=== PATIENT | male | born 1960 | race Caucasian/White ===

== ENCOUNTER 2025-04-25 23:16 | Inpatient (IN) | payer OTHER, SELFPAY ==
[2025-04-25 13:59] VITALS: BP 171/95
[2025-04-25 14:14] LABS: Hematocrit 43.6 % (39.0-52.0); Hemoglobin 14.7 g/dL (13.0-18.0); Mean Corp Hgb Conc. 33.7 g/dL (33.0-37.0); Mean Corpuscular Volume 87.7 fL (80.0-94.0); Nucleated Red Blood Cells % 0 % (-); Platelet Count 126 10^3/uL (130-400); Red Cell Dist. Width 12.9 % (11.5-14.5)
[2025-04-25 14:35] LABS: COVID-19 Antigen Negative (Negative)
[2025-04-25 14:53] LABS: ALT (SGPT) 33 U/L (0-50); AST (SGOT) 33 U/L (17-59); Albumin 4.2 g/dl (3.5-5.0); Alkaline Phosphatase 53 U/L (38-126); Blood Urea Nitrogen 25 mg/dl (9-20); Calcium 9.1 mg/dl (8.4-10.2); Carbon Dioxide 25 mmol/L (22-30); Chloride 99 mmol/L (98-107); Glucose 141 mg/dl (70-99); Potassium 4.0 mmol/L (3.5-5.1); Sodium 131 mmol/L (135-145); Total Protein 7.5 g/dl (6.3-8.2); eGFR > 60.00
[2025-04-25 18:34] VITALS: BP 158/76
[2025-04-25 18:36] VITALS: BMI 31.7
[2025-04-25] MEDS: TYLENOL 1000 MG PO (18:52)
[2025-04-25 19:00] VITALS: BP 156/81
[2025-04-25] MEDS: NSS 1000 IV (19:00)
--- NOTE | 2025-04-25 19:24 | ED.GENMED ---
History of Present Illness
<Tiffanie Nguyen PA-C - Last Filed: 04/26/25 11:37>
General
Chief Complaint: Change in Mental Status
Source: patient
Exam Limitations: none
Time Seen by Provider: 04/25/25 18:25
Nursing documentation reviewed up to this point in time: agreed with
History of Present Illness
History of Present Illness:
Patient is a 64-year-old male who presents to the emergency department for evaluation of flulike symptoms. Patient states he has had 2 days of fever, myalgias, and chills. He reports dark urine and mild low back discomfort. He denies any nasal
congestion, productive cough, sore throat. He has not had any abdominal pain or vomiting, however does endorse very little appetite over the past 2 days.
Patient was seen by his primary care provider this morning and was found to be febrile with a urinalysis which revealing evidence of infection and red blood cells.
He also notes that he has had difficulty finding words this morning and feels somewhat confused. He denies any recent head trauma. No headache or neck pain. No numbness/tingling or weakness in extremities.
He lives at home with his however she has been out of town for the weekend. He denies any known sick contacts.
He does have a history of a UTI in the past. No known history of kidney stones.
Review of Systems
<Tiffanie Nguyen PA-C - Last Filed: 04/26/25 11:37>
Review of Systems
Allergies reviewed?: Yes
All Other Systems: ROS reviewed and negative except as documented in HPI and ROS
Phy Exam
<Tiffanie Nguyen PA-C - Last Filed: 04/26/25 11:37>
Physical Exam
Physical Exam:
Vitals: Hypertensive, febrile.
General: Patient is in no distress.
Skin: Warm and dry, no rashes or lesions
Head: Normocephalic, atraumatic
Eyes: Sclera nonicteric. EOMs intact. Pupils equal round and reactive to light bilaterally. No nystagmus.
Throat: Protecting airway
Neck: Normal ROM, no cervical spine tenderness, no meningismus
Cardiac: Regular rate and rhythm, no murmurs.
Pulm: Normal respiratory effort. Lungs clear bilaterally
Abdomen: Abdomen soft without areas of focal tenderness. No rebound or guarding. No CVA tenderness.
Extremities: No evidence of cyanosis or edema. Strength 5/5 in bilateral upper and lower extremities.
Neuro: AAOx3. Somewhat slow speech however no obvious slurring. CN II-XII grossly intact. No facial droop or asymmetry.
Psychiatric: Normal affect.
Course
<Tiffanie Nguyen PA-C - Last Filed: 04/26/25 11:37>
Orders/Labs/Results
Orders:
Orders
04/25/25 14:05
COVID-19 Antigen Urgent
Source: Nasal Swab
Complete Blood Count/With Diff Urgent
Comprehensive Metabolic Panel Urgent
Lactic Acid Urgent
Blood Culture Urgent
[facility] Source: Blood/Venous
Specimen Description:
Influenza A+B Rapid Molecular Urgent
[facility] Source: Nasal Swab
Specimen Description:
04/25/25 Dinner
Regular
At Your Request: Full Participation
04/25/25 18:35
Abdomen/Pelvis wo Contrast CT [CT Abd/pelvis Wo Iv Cont] Urgent
Comment:
Reason For Exam: hematuria, fever
0.9% Sodium Chloride 1000 ml [Nss] 1,000 ml IV BOLUS
Acetaminophen [Tylenol] 1,000 mg PO NOW STA
04/25/25 18:36
CT Head W/o Iv Contrast Urgent
Comment:
Reason For Exam: AMS, confusion
04/25/25 19:01
Blood Culture Q30M
[facility] Source: Blood/Venous
Specimen Description:
04/25/25 21:53
Urinalysis Reflex To Culture Urgent
Date Specimen was Collected: 04/25/25
Time Specimen was Collected: 21:31
Urine Microscopic Reflex Cult Urgent
Urine Culture Urgent
[facility] Source: U
Specimen Description:
Date Specimen was Collected: 04/25/25
Time Specimen was Collected: 21:31
04/25/25 22:28
Cefepime HCl [Maxipime] 2,000 mg IV NOW STA
04/25/25 22:38
Add On - Microbiology Urgent
Tests Added?: urine culture
04/25/25 22:40
Sterile Water [Sterile Water For Injection] 10 ml .ROUTE .[facility]-MED [facility]
04/25/25 23:02
Admit/Transfer Patient As Directed
Co-Sign Provider:
Level of Care: Inpatient admission
Assign to:: Medical/Surgical
Physician / Group: sana
Diagnosis: uti
Reason for Hospitalization: uti
Expected length of stay greater than two midnights?: Yes
ELOS- Estimated Length of Stay in days: 2
I certify the patient meets the requirements for IP care: Yes
Code Status As Directed
Resuscitation Status: Full Code
PRN Pain Medication Management As Directed
May give lesser potent ordered pain med per pt: Yes
preference::
Protocol:: Medication orders for pain may be administered in a
manner that supports deferring to patient preference
when the pt is:
- Requesting an ordered lesser potent pain medication.
Least to most potent pain medications are defined
as: acetaminophen < NSAID < tramadol < opioids
(morphine, oxycodone, hydromorphone).
- Requesting a lesser dose of the same medication IF
ORDERED.
- Requesting a less intrusive route of administration
if both routes are prescribed by the provider (PO <
IV).
04/25/25 23:55
0.9% Sodium Chloride 1000 ml [Nss] 1,000 ml IV 100 mls/hr
Acetaminophen [Tylenol] 650 mg PO Q4HPRN PRN
Ondansetron Injectable [Zofran] 4 mg IV Q6HPRN PRN
04/25/25 23:55
UROLOGY CONSULT Routine
Consulting Provider: Adi Hills
Was physician already notified: Yes
Activity As Directed
Activity Level: As Tolerated
Pneumatic Compression Sleeves As Directed
Type: Knee high
Vital Signs As Directed
Frequency: Per unit guidelines
DX Deep Vein Thrombosis Video Routine
04/26/25 04:00
CefTRIAXone [Rocephin] 1,000 mg IV Q24H
04/26/25 06:15
Complete Blood Count/With Diff IN AM
Comprehensive Metabolic Panel IN AM
04/26/25 22:00
Atorvastatin [Lipitor] 10 mg PO HS
Abnormal Lab Results
04/25/25 04/25/25
14:05 21:53
WBC 11.3 H 10^3/uL
(4.8-10.8)
Plt Count 126 L 10^3/uL
(130-400)
Absolute Neuts (auto) 9.3 H 10^3/uL
(1.4-6.5)
Absolute Lymphs (auto) 0.5 L 10^3/uL
(1.2-3.4)
Absolute Monos (auto) 1.5 H 10^3/uL
(0.1-0.6)
Neutrophils % 81.8 H %
(42.2-75.2)
Lymphocytes % 4.4 L %
(20.5-51.1)
Monocytes % 13.3 H %
(1.7-9.3)
Sodium 131 L mmol/L
(135-145)
BUN 25 H mg/dl
(9-20)
Glucose 141 H mg/dl
(70-99)
Total Bilirubin 1.9 H mg/dl
(0.2-1.3)
Urine Ketones 2+ A
(Negative)
Ur Occult Blood Reflex 4+ A
(Negative)
Leukocyte Esterase Rfl 2+ A
(Negative)
Urine RBC 16-20 A /HPF
(0-2)
Urine WBC (Reflex) 11-15 A /HPF
(0-5)
Urine Bacteria (Reflex) Many A
(Negative)
Urine Albumin (Reflex) 4+ A
(Neg - Trace)
04/25/25 14:05
04/25/25 14:05
Vital Signs
Initial and Last Documented VS:
Initial Vital Signs
Temp Pulse Resp BP Pulse Ox
102.7 F H 82 16 171/95 92
04/25/25 13:59 04/25/25 13:59 04/25/25 13:59 04/25/25 13:59 04/25/25 13:59
Last Documented Vital Signs
Temp Pulse Resp BP Pulse Ox
98.4 F 66 16 140/74 96
04/26/25 07:20 04/26/25 07:20 04/26/25 07:20 04/26/25 07:20 04/26/25 07:20
<Kavin Rae, DO - Last Filed: 04/25/25 22:23>
Orders/Labs/Results
Orders:
Orders
04/25/25 14:05
COVID-19 Antigen Urgent
Source: Nasal Swab
Complete Blood Count/With Diff Urgent
Comprehensive Metabolic Panel Urgent
Lactic Acid Urgent
Blood Culture Urgent
[facility] Source: Blood/Venous
Specimen Description:
Influenza A+B Rapid Molecular Urgent
[facility] Source: Nasal Swab
Specimen Description:
04/25/25 Dinner
Regular
At Your Request: Full Participation
04/25/25 18:35
Abdomen/Pelvis wo Contrast CT [CT Abd/pelvis Wo Iv Cont] Urgent
Comment:
Reason For Exam: hematuria, fever
0.9% Sodium Chloride 1000 ml [Nss] 1,000 ml IV BOLUS
Acetaminophen [Tylenol] 1,000 mg PO NOW STA
04/25/25 18:36
CT Head W/o Iv Contrast Urgent
Comment:
Reason For Exam: AMS, confusion
04/25/25 19:01
Blood Culture Q30M
[facility] Source: Blood/Venous
Specimen Description:
04/25/25 21:53
Urinalysis Reflex To Culture Urgent
Date Specimen was Collected: 04/25/25
Time Specimen was Collected: 21:31
Urine Microscopic Reflex Cult Urgent
Urine Culture Urgent
[facility] Source: U
Specimen Description:
Date Specimen was Collected: 04/25/25
Time Specimen was Collected: 21:31
04/25/25 22:28
Cefepime HCl [Maxipime] 2,000 mg IV NOW STA
04/25/25 22:38
Add On - Microbiology Urgent
Tests Added?: urine culture
04/25/25 22:40
Sterile Water [Sterile Water For Injection] 10 ml .ROUTE .[facility]
04/25/25 23:02
Admit/Transfer Patient As Directed
Co-Sign Provider:
Level of Care: Inpatient admission
Assign to:: Medical/Surgical
Physician / Group: sana
Diagnosis: uti
Reason for Hospitalization: uti
Expected length of stay greater than two midnights?: Yes
ELOS- Estimated Length of Stay in days: 2
I certify the patient meets the requirements for IP care: Yes
Code Status As Directed
Resuscitation Status: Full Code
PRN Pain Medication Management As Directed
May give lesser potent ordered pain med per pt: Yes
preference::
Protocol:: Medication orders for pain may be administered in a
manner that supports deferring to patient preference
when the pt is:
- Requesting an ordered lesser potent pain medication.
Least to most potent pain medications are defined
as: acetaminophen < NSAID < tramadol < opioids
(morphine, oxycodone, hydromorphone).
- Requesting a lesser dose of the same medication IF
ORDERED.
- Requesting a less intrusive route of administration
if both routes are prescribed by the provider (PO <
IV).
04/25/25 23:55
0.9% Sodium Chloride 1000 ml [Nss] 1,000 ml IV 100 mls/hr
Acetaminophen [Tylenol] 650 mg PO Q4HPRN PRN
Ondansetron Injectable [Zofran] 4 mg IV Q6HPRN PRN
04/25/25 23:55
UROLOGY CONSULT Routine
Consulting Provider: Adi Hills
Was physician already notified: Yes
Activity As Directed
Activity Level: As Tolerated
Pneumatic Compression Sleeves As Directed
Type: Knee high
Vital Signs As Directed
Frequency: Per unit guidelines
DX Deep Vein Thrombosis Video Routine
04/26/25 04:00
CefTRIAXone [Rocephin] 1,000 mg IV Q24H
04/26/25 06:15
Complete Blood Count/With Diff IN AM
Comprehensive Metabolic Panel IN AM
04/26/25 22:00
Atorvastatin [Lipitor] 10 mg PO HS
Abnormal Lab Results
04/25/25 04/25/25
14:05 21:53
WBC 11.3 H 10^3/uL
(4.8-10.8)
Plt Count 126 L 10^3/uL
(130-400)
Absolute Neuts (auto) 9.3 H 10^3/uL
(1.4-6.5)
Absolute Lymphs (auto) 0.5 L 10^3/uL
(1.2-3.4)
Absolute Monos (auto) 1.5 H 10^3/uL
(0.1-0.6)
Neutrophils % 81.8 H %
(42.2-75.2)
Lymphocytes % 4.4 L %
(20.5-51.1)
Monocytes % 13.3 H %
(1.7-9.3)
Sodium 131 L mmol/L
(135-145)
BUN 25 H mg/dl
(9-20)
Glucose 141 H mg/dl
(70-99)
Total Bilirubin 1.9 H mg/dl
(0.2-1.3)
Urine Ketones 2+ A
(Negative)
Ur Occult Blood Reflex 4+ A
(Negative)
Leukocyte Esterase Rfl 2+ A
(Negative)
Urine RBC 16-20 A /HPF
(0-2)
Urine WBC (Reflex) 11-15 A /HPF
(0-5)
Urine Bacteria (Reflex) Many A
(Negative)
Urine Albumin (Reflex) 4+ A
(Neg - Trace)
04/25/25 14:05
04/25/25 14:05
Vital Signs
Initial and Last Documented VS:
Initial Vital Signs
Temp Pulse Resp BP Pulse Ox
102.7 F H 82 16 171/95 92
04/25/25 13:59 04/25/25 13:59 04/25/25 13:59 04/25/25 13:59 04/25/25 13:59
Last Documented Vital Signs
Temp Pulse Resp BP Pulse Ox
98.4 F 66 16 140/74 96
04/26/25 07:20 04/26/25 07:20 04/26/25 07:20 04/26/25 07:20 04/26/25 07:20
<Tiffanie Nguyen PA-C - Last Filed: 04/26/25 11:37>
MDM/Problems Addressed
Differential Diagnosis Includes:
Not limited to: Viral illness, acute dehydration, cystitis, pyelonephritis, prostatitis, obstructing ureteral stone, etc.
MDM/Problems Addressed:
64 year-old male with two days of fevers and myalgias, along with dark urine. Today with mild expressive aphasia and confusion. No respiratory symptoms. No abdominal pain or vomiting.
Patient is febrile on arrival, however otherwise has stable vital signs. On exam, his abdomen is soft without any areas of focal tenderness. Cardio/pulmonary assessment unremarkable. Somewhat slowed speech however he is alert and oriented without
any focal neurologic deficits.
Differential includes viral illness, complicated UTI/prostatitis, obstructing kidney stone, etc.
ED plan: Septic work up including labs, lactic acid, blood cultures. Will check UA and noncontrast CT scan abdomen/pelvis. Will check CT head with hx of change in mental status.
Update: Labs reveal mild leukocytosis and elevated bilirubin. Lactic acid normal. UA appears infected. CT without acute intra-abdominal pathology. Incidental suspected hepatic cysts and unknown lesion on right kidney noted � I did discuss both of
these findings with patient and importance of close follow-up outpatient. CT head without acute findings.
Impression is likely complicated UTI/prostatitis w/ suspected metabolic encephalopathy from infection. Patient will be admitted for IV antibiotics and further management pending blood cultures.
Patient given IV Cefepime in ED. Accepted to hospitalist service in stable condition.
Chronic conditions affecting care:
N/A
Acute Exacerbation and/or Progression of Chronic Illness:
N/A
<Tiffanie Nguyen PA-C - Last Filed: 04/26/25 11:37>
*Radiology
Radiology exam reviewed: radiology read reviewed
*Pulse Oximetry
SaO2: 96
Oxygen Mode of Delivery: Room air
Patient hypoxic: no
*EKG
Interpreted by ED Provider?: NA
*Slitter Cut Off Operator Interpretation
Rate: Slitter Cut Off Operator- N/A
*Critical Care Note
Total Time (30-74mins, 75-104mins- exclusive of procedures): Not Applicable
<Tiffanie Nguyen PA-C - Last Filed: 04/26/25 11:37>
Patient Management
Discussion with other providers: Hospitalist
ED Attending Note
<Tiffanie Nguyen PA-C - Last Filed: 04/26/25 11:37>
-
Portions of this chart may have been created with voice recognition software.� Occasional wrong word or��sound alike� substitutions may have occurred due to the inherent limitations of voice recognition software.
<Kavin Rae DO - Last Filed: 04/25/25 22:23>
ED Attending Note
Patient seen and examined by attending physician: Yes
Discharge Plan
Departure
Patient Disposition: Admit
Date of Disposition: 04/25/25
Time of Disposition: 22:35
Presentation/result/management discussed w/ accepting MD/DO: Hospitalist
Discharge Problem:
Complicated UTI (urinary tract infection)
Interventions
Interventions:
*Risk Screen - Suicide Last Done: 04/25/25 13:59
*General Assessment Last Done: 04/25/25 18:36
*Neglect/Abuse Screening Last Done: 04/25/25 13:59
*ED- Fall Risk Assessment Last Done: 04/25/25 18:36
*ED COVID-19 Vaccine History Last Done: 04/25/25 18:36
*ED Influenza Vaccine History Last Done: 04/25/25 18:36
*Nursing Disposition Last Done: 04/26/25 00:12
ED- Pulmonary Assessment Last Done: 04/25/25 18:52
ED- Neurological Assessment Last Done: 04/25/25 18:37
ED- Cardiac Assessment Last Done: 04/25/25 18:59
ED Swallowing Screen Last Done: 04/25/25 18:50
Discharge Date and Time
Discharge Date/Time: 04/26/25 00:21
[2025-04-25 20:00] VITALS: BP 133/72
[2025-04-25 22:02] LABS: Urine Character Cloudy (Clear)
[2025-04-25 22:08] LABS: Urine Squamous Cell 0-2 /LPF (Few)
[2025-04-25 22:11] LABS: Urine Red Blood Cell 16-20 /HPF (0-2)
[2025-04-25] MEDS: MAXIPIME 2000 MG IV (22:41)
[2025-04-25 22:44] VITALS: BP 143/72
--- NOTE | 2025-04-25 23:04 | HPS.HSE ---
Family Physician
-
Family Physician: Morgan Conner
Chief Complaint
-
urinary symptoms
History of Present Illness
63-year-old male past medical history of prior UTI, hip surgery presenting with flulike symptoms. He had 2 days of fever, myalgias and chills. He had dark bloody urine. He denies any nasal congestion, productive cough or sore throat. He denies
any abdominal pain or vomiting but does have decreased appetite over past 2 days. Did have dry heaving. Denies sick contacts. He lives at home with his but she has been out of town for the weekend.
He was seen by his primary care physician this morning and was found to be febrile with urinalysis revealing infection and RBCs. He also has had difficulty finding words this morning and feels somewhat confused which is improved. Denies head
trauma. Denies headache or neck pain. Denies numbness or tingling or focal weakness.
Denies any prior urinary symptoms such as difficulty voiding.
His brothers and mother have renal cysts.
He denies smoking. He drinks alcohol occasionally.
Medical History
Past Medical History
Past Medical History: Reports Other (prior UTI)
Past Surgical History: Reports Other (hip surgery )
Social History
Tobacco: Non-smoker
Alcohol: Occasional
Drug: None
Family History
Family History: Other (mother lung cancer )
Allergies / Home Medications
Allergies reflects when Allergies were last updated in [employer].
Home Medications with original date entered in [employer]
Allergy/Medication List:
Allergies
Allergy/AdvReac Type Severity Reaction Status Date / Time
No Known Allergies Allergy Verified 04/25/25 22:01
Home Medications
aspirin 81 mg tablet 81 mg PO DAILY 04/25/25
simvastatin 10 mg tablet 10 mg PO HS 04/25/25
Review of Systems
-
Constitutional: Reports No Symptoms
EENT: Reports No Symptoms
Respiratory: Reports No Symptoms
Cardiac: Reports No Symptoms
Abdomen/GI: Reports No Symptoms
: Reports See HPI
Musculoskeletal: Reports No Symptoms
Skin: Reports No Symptoms
Neurological: Reports No Symptoms
Endocrine: Reports No Symptoms
Hematologic/Lymphatic: Reports No Symptoms
Psych: Reports No Symptoms
Physical Exam
Vital Signs
Vital Signs
Temp Pulse Resp BP Pulse Ox
100.4 F H 71 23 133/72 95
04/25/25 21:58 04/25/25 22:30 04/25/25 22:30 04/25/25 20:00 04/25/25 22:30
Physical Exam
General: Well Developed, Well Nourished and No Apparent Distress
HEENT: NormoCephalic, Moist mucous membranes and Atraumatic
Respiratory: Clear
Cardiac: S1/S2 and Regular Rhythm; No Murmur or Rub
GI: Soft, Non Tender, Non Distended and Normal Bowel Sounds; No Organomegaly
Rectal: Deferred by Provider
Musculoskeletal: No Clubbing, No Cyanosis and No Edema
Skin: No Rash
Neuro: Nonfocal/grossly intact
Laboratory Results
-
04/25/25 14:05
04/25/25 14:05
Laboratory Results
Lactic Acid 0.9 mmol/L (0.7-2.0) 04/25/25 14:05
Total Bilirubin 1.9 mg/dl (0.2-1.3) H 04/25/25 14:05
AST 33 U/L (17-59) 04/25/25 14:05
ALT 33 U/L (0-50) 04/25/25 14:05
Alkaline Phosphatase 53 U/L (38-126) 04/25/25 14:05
Data Reviewed
-
Lab Data: Labs Reviewed by me
Old Records: Reviewed
Impression/Plan
-
IMPRESSION:
PLAN:
# Acute metabolic encephalopathy secondary to UTI
# History of prior UTI
- Urinalysis showed 11-15 WBC, +2 leukocyte esterase
- COVID and flu negative
- Urine culture
-Blood cultures pending
-IV fluids
- Ceftriaxone
# Hematuria secondary to UTI versus right renal lesion versus BPH
# Right renal lesion concerning for malignancy
- Urology consulted
- Hold aspirin
# Numerous hepatic lesions probably cysts
Full code
DVT prophylaxis�SCDs
Regular diet
[2025-04-26 00:30] VITALS: BP 148/79; BMI 29.9
[2025-04-26] MEDS: TYLENOL 650 MG PO ×3 (00:31→23:26)
[2025-04-26] MEDS: NSS 1000 IV ×2 (00:31→11:50)
[2025-04-26] MEDS: STERILE WATER FOR INJECTION 10 ML IV (03:51)
[2025-04-26] MEDS: ROCEPHIN 1000 MG IV (03:51)
--- NOTE | 2025-04-26 04:06 | DOWNTIME ---
There was a [email or web address] Administrator Downtime on 04/26/2025 from 0100 to 04/26/2025 at 0255. Downtime documentation of patient's care, including medication administrations, has been reconciled in the electronic record per guidelines. Refer to the
patient's paper chart under the miscellaneous tab to see printed paper medication records and downtime forms.
[2025-04-26 06:53] LABS: Hematocrit 39.0 % (39.0-52.0); Hemoglobin 13.3 g/dL (13.0-18.0); Mean Corp Hgb Conc. 34.1 g/dL (33.0-37.0); Mean Corpuscular Volume 86.7 fL (80.0-94.0); Nucleated Red Blood Cells % 0 % (-); Platelet Count 109 10^3/uL (130-400); Red Cell Dist. Width 12.9 % (11.5-14.5)
[2025-04-26 07:12] LABS: ALT (SGPT) 33 U/L (0-50); AST (SGOT) 36 U/L (17-59); Albumin 3.2 g/dl (3.5-5.0); Alkaline Phosphatase 52 U/L (38-126); Blood Urea Nitrogen 26 mg/dl (9-20); Calcium 8.1 mg/dl (8.4-10.2); Carbon Dioxide 26 mmol/L (22-30); Chloride 104 mmol/L (98-107); Estimated Creatinine Clearance 70 ml/min; Glucose 115 mg/dl (70-99); Potassium 3.7 mmol/L (3.5-5.1); Sodium 136 mmol/L (135-145); Total Protein 6.0 g/dl (6.3-8.2); eGFR > 60.00
[2025-04-26 07:20] VITALS: BP 140/74
--- NOTE | 2025-04-26 07:26 | CONS.URO ---
Consultation
-
Date/Time Consultation Performed: 04/26/2025 1155
Performing Provider: Reinier
Reason for Consultation: UTI
Medical History
History of Present Illness
excerpted admission note: '63-year-old male past medical history of prior UTI presenting with flulike symptoms. He had 2 days of fever, myalgias and chills. He had dark bloody urine. He denies any nasal congestion, productive cough or sore
throat. He denies any abdominal pain or vomiting but does have decreased appetite over past 2 days. Did have dry heaving. Denies sick contacts. He was seen by his primary care physician [Elvira Cross DO] Thursday morning and was found to be
febrile with urinalysis revealing infection and RBCs. He also has had difficulty finding words this morning and feels somewhat confused which is improved. Denies any prior urinary symptoms such as difficulty voiding.
'I had a UTI in the past, a few years ago.'
Past Medical History
Past Medical History: Other (UTI)
Past Surgical History: Orthopedic (hip)
Social History
Personal:
Allergies/Home Medications
Allergies
Allergy/AdvReac Type Severity Reaction Status Date / Time
No Known Allergies Allergy Verified 04/25/25 22:01
Home Medications
�Medication �Instructions �Recorded �Confirmed �Type
aspirin 81 mg tablet 81 mg PO DAILY Blood Clot 04/25/25 04/25/25 History
Prevention/Tx
simvastatin 10 mg tablet 10 mg PO HS High Cholesterol 04/25/25 04/25/25 History
Physical Exam
Vital Signs
Vital Signs
Temp Pulse Resp BP Pulse Ox
98.5 F 77 18 148/79 95
04/26/25 06:10 04/26/25 00:30 04/26/25 00:30 04/26/25 00:30 04/26/25 00:30
Lab / Testing Results
Laboratory Results
04/26/25 06:15
04/26/25 06:15
Physical Exam
adult male
General: No Apparent Distress
Skin: Warm
Neuro: Awake
Psych: Calm
Assessment / Plan
-
Suspected UTI
Bilateral Renal Lesions -- inadequately characterized by non-contrasted CT
imaging of lower tract is compromised by hip prosthesis artifact
abnormal liver -- dozens of lesions suspected to be cysts by interpreting radiologist
Rec:
tx UTI per urine cx -- obtain from PCP, if possible [no data in eCW]
will need contrasted CT or MRI as an outpatient to better characterized renal lesions
will need cystoscopy to evaluate lower tract
--- NOTE | 2025-04-26 07:30 | W.PN.HOSP.TC ---
Today's Communication/Plan
-
Continue Ceftriaxone
Follow repeat blood cultures
Assessment / Plan
Assessment / Plan
Physical Exam
General: Well Developed, Well Nourished and No Apparent Distress
HEENT: Normocephalic, Moist mucous membranes and Atraumatic
Respiratory: Clear to Auscultation Bilaterally
Cardiac: S1/S2 and Regular Rhythm
GI: Soft, Non Tender, Non Distended and Normal Bowel Sounds
Musculoskeletal: No Cyanosis and No Edema
Skin: Warm. Dry.
Neuro: Nonfocal/grossly intact
Assessment/Plan
63-year-old male past medical history of prior UTI, hip surgery presenting with flulike symptoms. He had 2 days of fever, myalgias and chills. He had dark bloody urine. He denies any nasal congestion, productive cough or sore throat. He denies
any abdominal pain or vomiting but does have decreased appetite over past 2 days. Did have dry heaving. Denies sick contacts. He lives at home with his but she has been out of town for the weekend. He was seen by his primary care physician
this morning and was found to be febrile with urinalysis revealing infection and RBCs. He also has had difficulty finding words this morning and feels somewhat confused which is improved. Denies head trauma. Denies headache or neck pain. Denies
numbness or tingling or focal weakness. Denies any prior urinary symptoms such as difficulty voiding. His brothers and mother have renal cysts. He denies smoking. He drinks alcohol occasionally.
# Acute metabolic encephalopathy secondary to UTI
# E. coli bacteremia
# History of prior UTI
# Leukocytosis - RESOLVED
- Urinalysis showed 11-15 WBC, +2 leukocyte esterase
- COVID and flu negative
- Urine culture pending
- Initial blood cultures prior to antibiotics growing E. coli
- Follow repeat blood cultures
- Received Cefepime in ER
- Continue Ceftriaxone
# Hematuria secondary to UTI versus right renal lesion versus BPH
# Right renal lesion concerning for malignancy
- Urology consulted
- Hold aspirin
# Numerous hepatic lesions probably cysts
Code Status: Full code
DVT prophylaxis�SCDs. Lovenox.
Regular diet
Anticipated Discharge: > 48 hours
Subjective/Interval History
-
Date of Service: April 26, 2025
Patient was seen and examined. He reported feeling better, denied any new symptoms or complaints.
Objective Data
-
Labs:
Laboratory Results
04/26/25
06:15
WBC 10.2
Hgb 13.3
Hct 39.0
Plt Count 109 L
Sodium 136
Potassium 3.7
Chloride 104
Carbon Dioxide 26
BUN 26 H
Creatinine 1.1
Glucose 115 H
Calcium 8.1 L
Total Bilirubin 1.8 H
AST 36
ALT 33
Alkaline Phosphatase 52
Vital Signs:
Vital Signs
Temp Pulse Resp BP Pulse Ox
98.5 F 77 18 148/79 95
04/26/25 06:10 04/26/25 00:30 04/26/25 00:30 04/26/25 00:30 04/26/25 00:30
I&O
04/25/25 04/26/25 04/27/25
06:59 06:59 06:59
Intake Total 1200 / 1200
Output Total 300 / 300
Balance 900 / 900
--- NOTE | 2025-04-26 10:31 | CM ---
CM reviewed chart, patient seen in chair with , initial assessment completed.
Patient is a 63-year-old male past medical history of prior UTI, hip surgery presenting with flulike symptoms.
Patient resides with his in a two story home, few steps to enter. Master bedroom on first floor, rarely go upstairs.
Patient denies DME, VN/SNF.
PCP Morgan Conner, Pharmacy [facility], confirms prescription coverage.
Patient denies insecurities at home, to transport home.
CM will continue to follow for all d/c needs.
Plan; home no needs anticipated
[2025-04-26 15:35] VITALS: BP 154/78
[2025-04-26] MEDS: LIPITOR 10 MG PO (19:29)
[2025-04-26 23:13] VITALS: BP 146/80
[2025-04-27] MEDS: ROCEPHIN 1000 MG IV (03:44)
[2025-04-27] MEDS: STERILE WATER FOR INJECTION 10 ML IV (03:44)
[2025-04-27 07:00] VITALS: BP 147/72
[2025-04-27 08:02] LABS: Hematocrit 41.3 % (39.0-52.0); Hemoglobin 13.5 g/dL (13.0-18.0); Mean Corp Hgb Conc. 32.7 g/dL (33.0-37.0); Mean Corpuscular Volume 90.0 fL (80.0-94.0); Platelet Count 120 10^3/uL (130-400); Red Cell Dist. Width 13.0 % (11.5-14.5)
--- NOTE | 2025-04-27 08:18 | W.PN.HOSP.TC ---
Today's Communication/Plan
-
Continue antibiotics
Follow cultures
Assessment / Plan
Assessment / Plan
Physical Exam
General: Well Developed, Well Nourished and No Apparent Distress
HEENT: Normocephalic, Moist mucous membranes and Atraumatic
Respiratory: Clear to Auscultation Bilaterally
Cardiac: S1/S2 and Regular Rhythm
GI: Soft, Non Tender, Non Distended and Normal Bowel Sounds
Musculoskeletal: No Cyanosis and No Edema
Skin: Warm. Dry.
Neuro: Nonfocal/grossly intact
Assessment/Plan
63-year-old male past medical history of prior UTI, hip surgery presenting with flulike symptoms. He had 2 days of fever, myalgias and chills. He had dark bloody urine. He denies any nasal congestion, productive cough or sore throat. He denies
any abdominal pain or vomiting but does have decreased appetite over past 2 days. Did have dry heaving. Denies sick contacts. He lives at home with his but she has been out of town for the weekend. He was seen by his primary care physician
this morning and was found to be febrile with urinalysis revealing infection and RBCs. He also has had difficulty finding words this morning and feels somewhat confused which is improved. Denies head trauma. Denies headache or neck pain. Denies
numbness or tingling or focal weakness. Denies any prior urinary symptoms such as difficulty voiding. His brothers and mother have renal cysts. He denies smoking. He drinks alcohol occasionally.
# Acute metabolic encephalopathy secondary to complicated E. coli UTI
# Suspected Sepsis due to UTI with organ dysfunction of acute metabolic encephalopathy
# E. coli bacteremia
# History of prior UTI
# Leukocytosis - RESOLVED
# Fever
#Bilateral Renal Lesions -- inadequately characterized by non-contrasted CT -- imaging of lower tract is compromised by hip prosthesis artifact
- Last fever was 101.6 F on 04/27/25 -- Tylenol 500 mg given -- monitor for further fevers
- Urinalysis showed 11-15 WBC, +2 leukocyte esterase
- COVID and flu negative
- Urine culture grew E. coli
- Initial blood cultures prior to antibiotics growing E. coli
- Follow repeat blood cultures -- no growth to date
- Since patient had fever of 101.6 F -- will repeat another set of blood cultures at ~48 hours from first one on 04/25/25
- Received Cefepime in ER
- Continue Ceftriaxone
- Per urology, patient will need contrasted CT or MRI as an outpatient to better characterized renal lesions and will also need cystoscopy to evaluate lower tract
# Hematuria secondary to UTI versus right renal lesion versus BPH
# Right renal lesion concerning for malignancy
- Urology consulted
- Hold aspirin
#Suspected Hypovolemic Hyponatremia
-Improved with IV fluids
#Mild, Asymptomatic Thrombocytopenia
-Suspected from infection versus Cefepime/Ceftriaxone, or both
#Numerous hepatic lesions probably cysts
- Will need close PCP/GI and maybe oncology follow-up outpatient
Code Status: Full code
DVT prophylaxis�SCDs. Lovenox.
Regular diet
Anticipated Discharge: 24 - 48 hours
Subjective/Interval History
-
Date of Service: April 27, 2025
Patient was seen and examined. He reported feeling well, was walking around his room without any issues.
Objective Data
-
Labs:
Laboratory Results
04/27/25
07:25
WBC 8.7
Hgb 13.5
Hct 41.3
Plt Count 120 L
Sodium Pending
Potassium Pending
Chloride Pending
Carbon Dioxide Pending
BUN Pending
Creatinine Pending
Glucose Pending
Calcium Pending
Total Bilirubin Pending
AST Pending
ALT Pending
Alkaline Phosphatase Pending
Vital Signs:
Vital Signs
Temp Pulse Resp BP Pulse Ox
98.3 F 57 12 147/72 96
04/27/25 07:00 04/27/25 07:00 04/27/25 07:00 04/27/25 07:00 04/27/25 07:00
I&O
04/26/25 04/27/25 04/28/25
06:59 06:59 06:59
Intake Total 1200 / 1200 240 / 240
Output Total 300 / 300
Balance 900 / 900 240 / 240
[2025-04-27 08:40] LABS: ALT (SGPT) 37 U/L (0-50); AST (SGOT) 34 U/L (17-59); Albumin 3.3 g/dl (3.5-5.0); Alkaline Phosphatase 61 U/L (38-126); Blood Urea Nitrogen 26 mg/dl (9-20); Calcium 8.4 mg/dl (8.4-10.2); Carbon Dioxide 28 mmol/L (22-30); Chloride 104 mmol/L (98-107); Estimated Creatinine Clearance 65 ml/min; Glucose 101 mg/dl (70-99); Potassium 3.8 mmol/L (3.5-5.1); Sodium 135 mmol/L (135-145); Total Protein 6.2 g/dl (6.3-8.2); eGFR > 60.00
--- NOTE | 2025-04-27 13:54 | W.PN.URO.CBU ---
Today's Communication / Plan
-
Rec:
tx UTI per urine final C&S for 10-14 days
will need contrasted CT or MRI as an outpatient to better characterized renal lesions
will need cystoscopy to evaluate lower tract
Assessment / Plan
-
UTI -- E. coli
Bilateral Renal Lesions -- inadequately characterized by non-contrasted CT
imaging of lower tract is compromised by hip prosthesis artifact
abnormal liver -- dozens of lesions suspected to be cysts by interpreting radiologist
Diagnosis
-
Date of Service: April 27, 2025
-
Patient Diagnosis:
E. coli UTI
Renal lesions -- uncharacterized
Subjective
-
'fine'
Objective
-
Vital Signs
Temp Pulse Resp BP Pulse Ox
98.3 F 57 12 147/72 96
04/27/25 07:00 04/27/25 07:00 04/27/25 07:00 04/27/25 07:00 04/27/25 07:00
Intake and Output
04/26/25 04/27/25 04/28/25
06:59 06:59 06:59
Intake Total 1200 / 1200 240 / 240
Output Total 300 / 300
Balance 900 / 900 240 / 240
Intake:
Oral fluids 600 / 600 240 / 240
IV fluids (Total) 600 / 600
Output:
Urine, Voided 300 / 300
Other:
Number of approximated MODERATE 1 2
amounts of urine
Laboratory Results
04/27/25 07:25
04/27/25 07:25
E. coli in urine
Physical Exam
-
General - well developed, well nourished, no acute distress
Chest - clear bilaterally
Abdomen - soft, non-tender, positive bowel sounds, no CVAT, no incisional pain or distention
Genitalia - normal
Rectal - normal
Skin - warm & dry with no rash
Neuro - AOx3, no motor deficits
Extremities - no clubbing, no cyanosis, no edema
Incision - clean, dry
Dressing - clean, dry, intact
[2025-04-27 15:00] VITALS: BP 163/78
--- NOTE | 2025-04-27 15:04 | PN.CDI ---
CDI
- -
CDI:
Physician Documentation Request
Admit Date: 04/25/25 23:[address] Apple,
[facility] is using an adapted version of the 2016 Third International Consensus Definitions for Sepsis and Septic Shock (Sepsis-3) where sepsis is defined as life threatening organ dysfunction caused by a deregulated host response to infection.
Please reference the official [facility] Sepsis Recognition Tool for further information, which can be found on the Intranet under Infection Prevention.
Patient admitted with UTI.
04/26 PN, 'Acute metabolic encephalopathy secondary to UTI....Continue Ceftriaxone.'
Based on your medical judgment, can you please clarify whether or not the above organ dysfunction is related to or due to sepsis?
Sepsis due to UTI with organ dysfunction of acute metabolic encephalopathy
UTI only
Other (please specify)
Use of terms such as suspected, likely, concern for, or probable (associated with a specific diagnosis that is being evaluated, monitored, or treated as if it exists) are acceptable and can be coded in the inpatient setting when documented at the
time of discharge.
Please use your independent medical judgement in providing your response.
Thank you,
Marge LISA,RN,CCDS
CDI Specialist
Available via [place] text
--- NOTE | 2025-04-27 15:10 | PN.CDI ---
CDI
- -
CDI:
Physician Documentation Request
Admit Date: 04/25/25 23:16
Dear Doctor Ambika,
Patient admitted with UTI.
Na levels documented below:
Patient received IV NSS.
Laboratory Tests
04/25/25 04/26/25 04/27/25
14:05 06:15 07:25
Sodium 131 L 136 135
Based on the above, could you clarify in the progress notes, the appropriate diagnosis, if significant, that supports the above abnormalities and additional evaluation, monitoring and/or treatment rendered:
Hyponatremia
Insignificant abnormal lab finding
Other
Use of terms such as suspected, likely, concern for, or probable (associated with a specific diagnosis that is being evaluated, monitored, or treated as if it exists) are acceptable and can be coded in the inpatient setting, when documented at the
time of discharge.
Thank you,
Marge LISA,RN,CCDS
CDI Specialist
Available via [place] text
Please use your independent medical judgment in providing your response.
--- NOTE | 2025-04-27 15:14 | PN.CDI ---
CDI
- -
CDI:
Physician Documentation Request
Admit Date: 04/25/25 23:[address] Apple,
Patient admitted with UTI.
Platelet count's documented below:
Laboratory Tests
04/25/25 04/26/25 04/27/25
14:05 06:15 07:25
Plt Count 126 L 109 L 120 L
Based on the above, could you clarify in the progress notes, the appropriate diagnosis, if significant, that supports the above abnormalities and additional evaluation, monitoring and/or treatment rendered:
Thrombocytopenia
Insignificant abnormal lab findings
Other
Use of terms such as suspected, likely, concern for, or probable (associated with a specific diagnosis that is being evaluated, monitored, or treated as if it exists) are acceptable and can be coded in the inpatient setting, when documented at the
time of discharge.
Thank you,
Marge LISA,RN,CCDS
CDI Specialist
Available via [place] text
Please use your independent medical judgment in providing your response.
[2025-04-27] MEDS: TYLENOL 500 MG PO (15:17)
[2025-04-27 18:53] LABS: LDH 194 U/L (120-246)
[2025-04-27 18:55] LABS: Reticulocyte Count 1.0 % (0.4-2.8)
[2025-04-27 21:19] LABS: APTT 26.5 Sec (23.4-35.0); INR 1.03; PT 14.0 Sec (11.4-14.6)
[2025-04-27] MEDS: LIPITOR 10 MG PO (22:08)
[2025-04-27 23:23] VITALS: BP 164/78
[2025-04-28] MEDS: ROCEPHIN 1000 MG IV (03:49)
[2025-04-28] MEDS: STERILE WATER FOR INJECTION 10 ML IV (03:49)
[2025-04-28 07:08] LABS: Hematocrit 37.2 % (39.0-52.0); Hemoglobin 12.8 g/dL (13.0-18.0); Mean Corp Hgb Conc. 34.4 g/dL (33.0-37.0); Mean Corpuscular Volume 87.7 fL (80.0-94.0); Platelet Count 137 10^3/uL (130-400); Red Cell Dist. Width 12.9 % (11.5-14.5)
[2025-04-28 07:18] VITALS: BP 148/83
[2025-04-28 07:46] LABS: ALT (SGPT) 35 U/L (0-50); AST (SGOT) 28 U/L (17-59); Albumin 2.9 g/dl (3.5-5.0); Alkaline Phosphatase 67 U/L (38-126); Blood Urea Nitrogen 22 mg/dl (9-20); Calcium 8.3 mg/dl (8.4-10.2); Carbon Dioxide 29 mmol/L (22-30); Chloride 102 mmol/L (98-107); Estimated Creatinine Clearance 65 ml/min; Glucose 104 mg/dl (70-99); Potassium 3.7 mmol/L (3.5-5.1); Sodium 134 mmol/L (135-145); Total Protein 5.8 g/dl (6.3-8.2); eGFR > 60.00
--- NOTE | 2025-04-28 08:36 | W.PN.URO.CBU ---
Today's Communication / Plan
-
discharge on 14 days of po abx
have pt repeat urine C&S 5-7 days after completing abx
f/u as an outpatient in 4 weeks
Assessment / Plan
-
E. coli Urosepsis
Bilateral Renal Lesions -- inadequately characterized by non-contrasted CT
imaging of lower tract is compromised by hip prosthesis artifact
abnormal liver -- dozens of lesions suspected to be cysts by interpreting radiologist
Diagnosis
-
Date of Service: April 28, 2025
-
Patient Diagnosis:
E. coli Urosepsis
Renal lesions -- uncharacterized
Objective
-
Vital Signs
Temp Pulse Resp BP Pulse Ox
99.6 F 68 16 148/83 95
04/28/25 07:18 04/28/25 07:18 04/28/25 07:18 04/28/25 07:18 04/28/25 07:18
Intake and Output
04/27/25 04/28/25 04/29/25
06:59 06:59 06:59
Intake Total 240 / 240 2220 / 2220
Balance 240 / 240 2220 / 2220
Intake:
Oral fluids 240 / 240 2220 / 2220
Other:
Number of approximated MODERATE 2 2
amounts of urine
Laboratory Results
04/28/25 06:35
04/28/25 06:35
caba-sensitive E. coli in urine and blood
Physical Exam
-
General - well developed, well nourished, no acute distress
Chest - clear bilaterally
Abdomen - soft, non-tender, positive bowel sounds, no CVAT, no incisional pain or distention
Genitalia - normal
Rectal - normal
Skin - warm & dry with no rash
Neuro - AOx3, no motor deficits
Extremities - no clubbing, no cyanosis, no edema
Incision - clean, dry
Dressing - clean, dry, intact
--- NOTE | 2025-04-28 09:08 | CON.ID ---
Consultation
-
Date/Time Consultation Requested: April 28, 2025 0810
Date/Time Consultation Performed: April 28, 2025 1000
Requesting Provider: Dr. Pérez Apple
Performing Provider: Dr. Odalis Edmonds
Reason for Consultation: E. coli UTI
Chief Complaint / Past History
Chief Complaint
Fever and malaise
History of Present Illness
64-year-old male without significant past medical history who presented to the ED on April 25 with 3-day history of flulike symptoms. He reports fevers, chills, body aches. No URI symptoms. No cough or shortness of breath. No abdominal pain
or diarrhea. No urine symptoms. No flank pain. He then noted urine dark red as well as confusion and therefore came to the hospital. In ED temperature 102.7, white count 11.3. CAT scan of the abdomen and pelvis no hydronephrosis. Urine analysis
2+ leukocyte esterase, 16-20 red blood cells, 11-15 white blood cells. Urine culture pansensitive E. coli. Admission blood cultures x 2 E. coli. He is currently on ceftriaxone. He had hx of E. coli UTI once 2 years ago. He reports he feels much
improved today. Urine is clear. He would like to go home. Urology has been following him.
Past History
Additional Past Medical History:
E. coli UTI x 2022
mild BPH
Additional Past Surgical History:
Right total hip replacement.
Allergy History:
No Known Allergies Allergy (Verified 04/25/25 22:01)
Medications Reviewed: Yes
Current Antibiotics:
Ceftriaxone day 4
Social History
Tobacco: Non-Smoker
Alcohol: Occasional
Drug: None
Living: With Family
Family History
Family History: Other (Polycystic kidney and liver)
Review of Systems
Review of Systems
General: Fever, Chills and Change in Appetite
HEENT: Negative Sinus Problems or Headache
Cardiovascular: Negative Chest Pain
Respiratory: Negative Dyspnea or Cough
Gasteroenterology: Negative Nausea, Vomiting or Diarrhea
Genital / Urological: Hematuria; Negative Dysuria or Flank Pain
Endocrine: Weakness
All systems: All other systems were reviewed and were negative
Vital Signs
Temp Pulse Resp BP Pulse Ox
99.6 F 68 16 148/83 95
04/28/25 07:18 04/28/25 07:18 04/28/25 07:18 04/28/25 07:18 04/28/25 07:18
Selected Entries
04/27/25
15:00
Temp 101.6 F H
Physical Exam
Physical Exam
Constitutional: No Acute Distress and Comfortable
Head: Other (No sinus tenderness)
Eyes: No Conjunctival Hemorrhage and Sclera Anicteric
Cardiovascular: Regular Rate and S1/S2
Pulmonary: Clear
Gastrointestinal: Soft, Non Tender and Non Distended
Genito-Urinary: Negative CVA Tenderness
Musculoskeletal: Negative Spinal Tenderness
Neurological: AO x 3
Lab / Diagnostic Study Results
04/28/25 06:35
04/28/25 06:35
Abs Immat Gran (auto) 0.0 10^3/uL (0-0.05) 04/26/25 06:15
Absolute Neuts (auto) 8.4 10^3/uL (1.4-6.5) H 04/26/25 06:15
Absolute Lymphs (auto) 0.4 10^3/uL (1.2-3.4) L 04/26/25 06:15
Absolute Monos (auto) 1.3 10^3/uL (0.1-0.6) H 04/26/25 06:15
Absolute Basos (auto) 0.0 10^3/uL (0-0.2) 04/26/25 06:15
Immature Gran % 0.3 % (0-0.5) 04/26/25 06:15
Neutrophils % 82.4 % (42.2-75.2) H 04/26/25 06:15
Lymphocytes % 4.3 % (20.5-51.1) L 04/26/25 06:15
Monocytes % 12.9 % (1.7-9.3) H 04/26/25 06:15
Eosinophils % 0.0 % (0-6) 04/26/25 06:15
Basophils % 0.1 % (0-2) 04/26/25 06:15
PT 14.0 Sec (11.4-14.6) 04/27/25 20:51
INR 1.03 04/27/25 20:51
Lactic Acid 0.9 mmol/L (0.7-2.0) 04/25/25 14:05
Ur Squamous Epith Cells 0-2 /LPF (Few) 04/25/25 21:53
Microbiology Results
Micro:
04/25/25 19:01 Blood Culture - Final
Blood/Venous Escherichia coli
Gram Stain - Final
04/25/25 14:05 Blood Culture - Final
Blood/Venous Escherichia coli
Gram Stain - Final
04/25/25 21:53 Urine Culture - Final
Urine Escherichia coli
04/27/25 23:00 Blood Culture - Pending
Blood/Venous
04/27/25 21:56 Blood Culture - Pending
Blood/Venous
04/26/25 11:38 Blood Culture - Preliminary
Blood/Venous No Growth in 24 hours- Final report to follow
04/26/25 11:03 Blood Culture - Preliminary
Blood/Venous No Growth in 24 hours- Final report to follow
04/25/25 14:05 Influenza Types A & B (TIRSO) - Final
Nasal Swab Negative for Influenza A & B, NAAT
Negative results must be combined with clinical observations
and patient history.
Nucleic Acid Amplification test (NAAT)performed on the
[employer] platform.
04/25/25 CT a/p: No acute pathology of the abdomen or pelvis identified. Numerous hypodense hepatic lesions probably cysts. Metastatic disease cannot be excluded. This could be confirmed by ultrasound if not already known. Moderate hepatomegaly.
Hyperdense left renal lesion likely a benign proteinaceous cyst. Isodense right renal lesion concerning for malignancy until proven otherwise. This would better be evaluated by nonurgent MR examination. Mild prostate hypertrophy.
Assessment / Plan
# Complicated E. coli UTI
# E. coli bacteremia
# Fever - resolving
# Leukocytosis resolved
- Repeat blood cx's pending
- Can transition ceftriaxone to cipro 500mg po bid through 05/09/25.
- Check QTc
- OK for discharge
Care Review
Plan reviewed with: Physician (Dr. Apple)
--- NOTE | 2025-04-28 11:53 | W.PN.HOSP.TC ---
Today's Communication/Plan
-
Discharge today
Assessment / Plan
Assessment / Plan
Physical Exam
General: Well Developed, Well Nourished and No Apparent Distress
HEENT: Normocephalic, Moist mucous membranes and Atraumatic
Respiratory: Clear to Auscultation Bilaterally
Cardiac: S1/S2 and Regular Rhythm
GI: Soft, Non Tender, Non Distended and Normal Bowel Sounds
Musculoskeletal: No Cyanosis and No Edema
Skin: Warm. Dry.
Neuro: Nonfocal/grossly intact
Assessment/Plan
63-year-old male past medical history of prior UTI, hip surgery presenting with flulike symptoms. He had 2 days of fever, myalgias and chills. He had dark bloody urine. He denies any nasal congestion, productive cough or sore throat. He denies
any abdominal pain or vomiting but does have decreased appetite over past 2 days. Did have dry heaving. Denies sick contacts. He lives at home with his but she has been out of town for the weekend. He was seen by his primary care physician
this morning and was found to be febrile with urinalysis revealing infection and RBCs. He also has had difficulty finding words this morning and feels somewhat confused which is improved. Denies head trauma. Denies headache or neck pain. Denies
numbness or tingling or focal weakness. Denies any prior urinary symptoms such as difficulty voiding. His brothers and mother have renal cysts. He denies smoking. He drinks alcohol occasionally.
# Acute metabolic encephalopathy secondary to complicated E. coli UTI
# Suspected Sepsis due to UTI with organ dysfunction of acute metabolic encephalopathy
# E. coli bacteremia
# History of prior UTI
# Leukocytosis - RESOLVED
# Fever
#Bilateral Renal Lesions -- inadequately characterized by non-contrasted CT -- imaging of lower tract is compromised by hip prosthesis artifact
- Last fever was 101.6 F on 04/27/25 -- Tylenol 500 mg given -- monitor for further fevers
- Urinalysis showed 11-15 WBC, +2 leukocyte esterase
- COVID and flu negative
- Urine culture grew E. coli
- Initial blood cultures prior to antibiotics growing E. coli
- Follow repeat blood cultures -- no growth to date
- Since patient had fever of 101.6 F -- will repeat another set of blood cultures at ~48 hours from first one on 04/25/25
- Received Cefepime in ER
- On discharge, transition Ceftriaxone to Cipro 500 mg PO BID through 05/09/25. QTc okay.
- Per urology, patient will need contrasted CT or MRI as an outpatient to better characterized renal lesions and will also need cystoscopy to evaluate lower tract
# Hematuria secondary to UTI versus right renal lesion versus BPH
# Right renal lesion concerning for malignancy
- Urology consulted
- Continue aspirin
#Suspected Hypovolemic Hyponatremia
-Improved with IV fluids
#Mild, Asymptomatic Thrombocytopenia
-Suspected from infection versus Cefepime/Ceftriaxone, or both
#Numerous hepatic lesions probably cysts
- Will need close PCP/GI and maybe oncology follow-up outpatient
Code Status: Full code
DVT prophylaxis�SCDs. Lovenox.
Regular diet
More than 30 minutes spent in discharge including
Final examination of the patient
Summarizing hospital stay
Instructions for continuing care to all relevant caregivers
Preparation of discharge records, prescriptions, and referral forms
Total time spent (in minutes): 39
Anticipated Discharge: Today
Subjective/Interval History
-
Date of Service: April 28, 2025
Patient was seen and examined. He stated he is feeling good, denied any new symptoms or complaints.
Objective Data
-
Labs:
Laboratory Results
04/28/25
06:35
WBC 7.2
Hgb 12.8 L
Hct 37.2 L
Plt Count 137
Sodium 134 L
Potassium 3.7
Chloride 102
Carbon Dioxide 29
BUN 22 H
Creatinine 1.2
Glucose 104 H
Calcium 8.3 L
Total Bilirubin 0.8
AST 28
ALT 35
Alkaline Phosphatase 67
Vital Signs:
Vital Signs
Temp Pulse Resp BP Pulse Ox
99.6 F 68 16 148/83 95
04/28/25 07:18 04/28/25 07:18 04/28/25 07:18 04/28/25 07:18 04/28/25 07:18
I&O
04/27/25 04/28/25 04/29/25
06:59 06:59 06:59
Intake Total 240 / 240 2220 / 2220
Balance 240 / 240 2220 / 2220
--- NOTE | 2025-04-28 12:54 | W.DCSUMMARY ---
Discharge Summary
Discharge Data
Date of Admission: 04/25/25
Date of Discharge: 04/28/25
Total time spent discharging patient (in min): 39
-
Pending Results: Yes
Additional Pending Results:
Final results of repeat blood cultures/microbiology studies from hospitalization
Hospital Course
64 year-old male with past medical history of prior UTI and hip surgery presented with flulike symptoms -- 2 days duration of fever, myalgias and chills. He also noted having dark bloody urine and decreased appetite. He denied any nasal congestion,
productive cough or sore throat. He denied any abdominal pain or vomiting, but did have dry heaving. He was seen by his primary care physician on the morning of presentation, and was found to be febrile with urinalysis suggesting urinary tract
infection and RBCs. CT Abdomen Pelvis without intravenous contrast was done, and as per radiologist's report, it showed no acute pathology of the abdomen or pelvis, but did show numerous hypodense hepatic lesions probably cysts, metastatic disease
cannot be excluded, moderate hepatomegaly, hyperdense left renal lesion likely a benign proteinaceous cys, isodense right renal lesion concerning for malignancy until proven otherwise, mild prostate hypertrophy, mild diverticulosis. Blood cultures
were ordered and patient was started on Ceftriaxone. Urology was consulted given the CT findings. Urology mentioned that patient would need contrasted CT or MRI as an outpatient to better characterize the renal lesions seen on the CT imaging, and
they also mentioned that patient would need cystoscopy to evaluate lower genitourinary tract. Patient was found to have E. coli bacteremia and repeat blood cultures were ordered, which showed no growth to date. Patient had another fever and
infectious disease was consulted. Overall however patient was feeling much better and his presenting symptoms improved/mostly resolved.
Discharge Plan
-
Patient Disposition: Home (Routine Discharge)
Discharge Diagnosis/Procedures: # Acute metabolic encephalopathy secondary to complicated E. coli UTI
# Suspected Sepsis due to UTI with organ dysfunction of acute metabolic encephalopathy
# E. coli bacteremia
# History of prior UTI
# Leukocytosis - RESOLVED
# Fever
# Bilateral Renal Lesions -- inadequately characterized by non-contrasted CT -- imaging of lower tract is compromised by hip prosthesis artifact
# Hematuria secondary to UTI versus right renal lesion versus BPH
# Right renal lesion concerning for malignancy
# Suspected Hypovolemic Hyponatremia
# Mild, Asymptomatic Thrombocytopenia
# Numerous hepatic lesions probably cysts
CT Abdomen Pelvis (as per radiologist's report):
FINDINGS:
Lung Bases: The lungs bases are clear.
Bone: Osseous structures of the abdomen and pelvis show moderate degenerative disease. Has been a right hip replacement.
Abdomen and pelvis: The unenhanced , spleen, gallbladder and pancreas are unremarkable. There are numerous various sized rounded hypodense hepatic lesions probably cysts. The largest measures approximately 2.8 cm. The liver measures 27 cm in length.
The adrenal glands are unremarkable. There is no hydronephrosis. There are no radiopaque urinary stones. There is a hyperdense exophytic left renal lesion likely a benign proteinaceous cyst. It measures 2.5 cm and has a density of 80 Hounsfield
units. There is an exophytic isodense mass of the inferior right kidney measuring 3.2 cm. It has a density of 44 Hounsfield units. The abdominal aorta is normal caliber. There is mild atherosclerotic vascular disease. No significant lymphadenopathy
is noted. Bowel loops are normal caliber. The terminal ileum and appendix are within normal limits. There is moderate fecal material throughout the colon. There is mild diverticulosis. No free fluid is noted. The urinary bladder is unremarkable. The
prostate gland is mildly enlarged. There is moderate metallic artifact in the pelvis due to the right hip hardware.
IMPRESSION: No acute pathology of the abdomen or pelvis identified; Numerous hypodense hepatic lesions probably cysts. Metastatic disease cannot be excluded. This could be confirmed by ultrasound if not already known; Moderate hepatomegaly;
Hyperdense left renal lesion likely a benign proteinaceous cyst; Isodense right renal lesion concerning for malignancy until proven otherwise. This would better be evaluated by nonurgent MR examination; Mild prostate hypertrophy; Mild
diverticulosis.
Condition: Good
Diet: As tolerated
Activity: As tolerated
Others Tests: have Urine C&S performed 5-7 days after completing antibiotics; have CT scan of abdomen with and without IV contrast in ~ 3 weeks
Activity Restrictions/Additional Instructions:
If taking antacid, iron, zinc, magnesium, aluminum, calcium, or sucralfate, takethese products 6 hours before or 2 hours after ciprofloxacin. Monitor for tendon pain while on cipro.
Please take a print out of your CT Abdomen/Pelvis report (which was done in the hospital on 04/25/25) before you leave the hospital, and please discuss the report findings with your primary care provider by Thursday05/02/25. Please also discuss your
hospitalization with your primary care provider by Thursday05/02/25. You may need an outpatient MRI of your abdomen pelvis [place] to further look at your liver and kidney lesions.
Ciprofloxacin antibiotic may increase myopathic (rhabdomyolysis) effects of Simvastatin; Ciprofloxacin (Systemic) may increase serum concentrations of Simvastatin. So this needs to be monitored. If you have any new symptoms, please call your doctor,
and if your doctor is not immediately available, please return to the ER right away.
If you would like, you can hold off on taking your Simvastatin until you see your doctor next week.
Please read the information sheets on Ciprofloxacin, Rhabdomyolysis and Simvastatin.
Instructions: Rhabdomyolysis, Ciprofloxacin (Systemic), Simvastatin
Referrals:
Morgan Conner MD [Family Provider, Family Practice] - in less than 1 week
Referral Note: Hospitalization Follow-Up
Adi Hills MD [Active, Urology]
Referral Note: call to schedule appointment in 4-5 weeks
Megan Ramirez MD [Active, Gastroenterology] - in two to three weeks
Referral Note: Liver lesions seen on hospital CT imaging. Likely needs MRI outpatient. Seeing urology for lesions on kidney as well on hospital CT imaging.
Prescriptions:
New
ciprofloxacin HCl [Cipro] 500 mg tablet
500 mg PO BID 12 Days Qty: 24 0RF
Rx Instructions:
Continue this medication through 05/09/25
Continued
aspirin 81 mg Tablet
81 mg PO DAILY
simvastatin 10 mg Tablet
10 mg PO HS
Discharge Orders:
Discharge Patient (As Directed); Ordered 04/28/25
Ordered By: Pérez Apple
Discharge Date and Time
Discharge Date/Time: 04/28/25 15:36
Print Language: COMORAN
--- NOTE | 2025-04-28 13:02 | CM ---
CM reviewed chart, patient seen bedside.
Patient for d/c today.
Patient denies needs from CM, confirms transport home from .
CM will continue to follow for all discharge planning needs.
Plan; home no needs
== END 2025-04-28 15:36 | disposition home or self-care (01) | DRG 871 ==
LOC: 4 WEST ACU 23:16
PROVIDERS: Emergency Medicine; Physician Assistant; ADMITTING PHYSICIAN Hospitalist; ATTENDING PHYSICIAN Hospitalist; CONSULT PHYSICIAN Internal Medicine Infectious Disease; CONSULT PHYSICIAN Specialist; EMERGENCY PHYSICIAN Emergency Medicine; FAMILY PHYSICIAN Family Medicine
DX: A41.51 Sepsis due to Escherichia coli [E. coli] (principal); G93.41 Metabolic encephalopathy; N39.0 Urinary tract infection, site not specified; E87.1 Hypo-osmolality and hyponatremia; R65.20 Severe sepsis without septic shock; B96.20 Unspecified Escherichia coli [E. coli] as the cause of diseases classified elsewhere; Z87.440 Personal history of urinary (tract) infections; N28.9 Disorder of kidney and ureter, unspecified; Z80.1 Family history of malignant neoplasm of trachea, bronchus and lung; K76.9 Liver disease, unspecified; E78.00 Pure hypercholesterolemia, unspecified; N40.0 Benign prostatic hyperplasia without lower urinary tract symptoms; Z96.641 Presence of right artificial hip joint; Z11.52 Encounter for screening for COVID-19
CPT/HCPCS: 70450; 74176; 80053; 81003; 81015; 83605; 83615; 85025; 85027; 85045; 85610; 85730; 87040; 87077; 87086; 87154; 87186; 87205; 87502; 87811; 93005; 96361; 96374; 99285